=== PATIENT | male | born 1960 | race Caucasian/White ===

== ENCOUNTER 2018-05-13 00:28 | Emergency (ER) | payer MEDICAID ==
--- NOTE | 2018-05-13 00:50 | EDPHY ---
H & P Stated Complaint: right hand closed in car door at 2300 Time Seen by Provider: 05/13/18 00:43 HPI/ROS: Chief Complaint: Right hand injury HPI: 57-year-old male got his hand caught in a car door earlier this evening. Is complaining of pain at the base of his little finger. He has a history of fracture in that location in the past. Injury occurred a little over 2 hr ago. No other injuries. He is not taking any medications. ROS: 10 systems were reviewed and were negative except those elements noted in the HPI. Social History: Positive smoking Family History: non-contributory Physical Exam: General: Awake, alert, no acute distress Right hand: Patient has tenderness with swelling and ecchymosis over his middle 5th metacarpal. No bony deformity. Mild edema. Decreased range of motion of his 4th and 5th digits secondary to pain. No swelling. Sensation intact in the radial, median, and ulnar nerve distribution. Capillary refills less than 2 sec. No wrist tenderness or deformity. 2+ radial ulnar pulses. Skin: No rash - Personal History Current Tetanus/Diphtheria Vaccine: Yes - Medical/Surgical History Hx Asthma: No Hx Chronic Respiratory Disease: Yes Hx Diabetes: No Hx Cardiac Disease: No Hx Renal Disease: No Hx Cirrhosis: No Hx Alcoholism: No Hx HIV/AIDS: No Hx Splenectomy or Spleen Trauma: Yes Other PMH: 1998: fx pelvis/fx liver/spleen/bladder/fx spine. 2012: appy, lacerated artery/ bowel resection. agoraphobia, schizoaffective, bipolar, copd , hep c - Social History Smoking Status: Current every day smoker Constitutional: Initial Vital Signs Temperature (C) 36.5 C 05/13/18 00:34 Heart Rate 100 05/13/18 00:34 Respiratory Rate 18 05/13/18 00:34 Blood Pressure 123/77 H 05/13/18 00:34 O2 Sat (%) 91 L 05/13/18 00:34 O2 Delivery Mode Room Air Allergies/Adverse Reactions: morphine Allergy (Severe, Verified 05/13/18 00:34) Anaphylaxis Home Medications: Medication Instructions Recorded ARIPiprazole [Abilify 5 mg (RX)] 15 mg PO DAILY 09/03/12 Albuterol [Proventil Inhaler (RX)] 2 puffs IH Q4-6PRN PRN 09/03/12 Benztropine Mesylate [Cogentin 2 mg PO DAILY18 09/03/12 (RX)] Diazepam [Valium 5 MG (RX)] 5 mg PO DAILY 09/17/12 Advair 100/50 (*) 05/13/18 Propranolol HCl 05/13/18 Sertraline HCl 05/13/18 Medical Decision Making - Diagnostics Imaging Results: Patient has a displaced 5th metacarpal fracture. Imaging: I viewed and interpreted images myself ED Course/Re-evaluation: The patient placed in an ulnar gutter splint. Been given pain medication. Will discharge with follow up with Hand surgery. I have inspected the patient's splint. He has good immobility with normal perfusion. He is comfortable. Departure - Departure Disposition: Home, Routine, Self-Care Clinical Impression: Hand fracture Condition: Good Instructions: Hydrocodone/Acetaminophen (By mouth), Hand Fracture (ED), Splint Care (ED) Additional Instructions: Follow up with hand surgeon in 2-3 days for further evaluation. Referrals: Gregorio Edwards MD [Medical Doctor] - As per Instructions
[2018-05-13] MEDS ORDERED: HYDROCOD/APAP 5/325 PREPACK#6 BTL TAKEHOME ONE (01:36)
[2018-05-13] MEDS ORDERED: HYDROCODONE/APAP 5/325 TAB PO ONE (01:36)
[2018-05-13 02:13] VITALS: BP 110/86
== END 2018-05-13 02:12 | disposition home or self-care (01) ==
PROC: 2W3EX1Z Immobilization of Right Hand using Splint (ICD-10-PCS; principal; 2018-05-13)
DX: S62.316A Displaced fracture of base of fifth metacarpal bone, right hand, initial encounter for closed fracture (principal); W23.1XXA Caught, crushed, jammed, or pinched between stationary objects, initial encounter; Y92.810 Car as the place of occurrence of the external cause; F17.200 Nicotine dependence, unspecified, uncomplicated

== ENCOUNTER 2018-05-23 20:17 | Emergency (ER) | payer MEDICAID ==
--- NOTE | 2018-05-23 20:27 | EDPHY ---
H & P Stated Complaint: "i feel like the pins are moving"/sx on r hand Time Seen by Provider: 05/23/18 20:27 HPI/ROS: HPI CHIEF COMPLAINT: Right hand pain. HISTORY OF PRESENT ILLNESS: 57-year-old male, history of her right hand fracture. He had surgery on May [address] Connor. He presents emergency room stating his right hand is giving him increasing pain. No fever. He remains in his splint. He is out of his pain medication. States he initially injured his right hand by catching the hand in a car door. Past Medical History: Denies medical history Past Surgical History: Recent right hand surgery May 19. Social History: Denies alcohol or drugs. Family History: Noncontributory ROS REVIEW OF SYSTEMS: 10 Systems were reviewed and negative with the exception of the elements mentioned in the history of present illness. Exam Constitutional triage nursing summary reviewed, vital signs reviewed, awake/ alert. Eyes normal conjunctivae and sclera, EOMI, PERRLA. HENT normal inspection, atraumatic, moist mucus membranes, no epistaxis, neck supple/ no meningismus, no raccoon eyes. Respiratory clear to auscultation bilaterally, normal breath sounds, no respiratory distress, no wheezing. Cardiovascular rate normal, regular rhythm, no murmur, no edema, distal pulses normal. Gastrointestinal soft, non-tender, no rebound, no guarding, normal bowel sounds, no distension, no pulsatile mass. Genitourinary no CVA tenderness. Musculoskeletal right hand: In splint. Otherwise good cap refill, plan for splint takedown evaluation no midline vertebral tenderness, full range of motion, no calf swelling, no tenderness of extremities, no meningismus, good pulses, neurovascularly intact. Skin pink, warm, & dry, no rash, skin atraumatic. Neurologic awake, alert and oriented x 3, AAOx3, moves all 4 extremities equally, motor intact, sensory intact, CN II-XII intact, normal cerebellar, normal vision, normal speech. Psychiatric normal mood/affect. Heme/Lymph/Immune no lymphadenopathy. Differential Diagnosis: Includes but is not limited to in a particular order hand contusion, hand fracture, infection, compartment syndrome, postsurgical discomfort Medical Decision Making: Plan for this patient is complaining of right hand pain status post surgery. Will take down the splint examine his hand make sure that there is no signs of infection or compartment syndrome. Re-evaluation: Patient's splint was taken down. I examined his hand there is no evidence of compartment syndrome. He is neurovascularly intact. The pains that her located on the right lateral aspect of his hand appear clean, dry, intact with no signs of infection. Plan will be for re-splint. I will give him a limited supply of [place] for pain control He understands follow back up with Dr. Connor. Source: Patient - Personal History Current Tetanus Diphtheria and Acellular Pertussis (TDAP): Yes - Medical/Surgical History Hx Asthma: No Hx Chronic Respiratory Disease: Yes Hx Diabetes: No Hx Cardiac Disease: No Hx Renal Disease: No Hx Cirrhosis: No Hx Alcoholism: No Hx HIV/AIDS: No Hx Splenectomy or Spleen Trauma: Yes Other PMH: 1998: fx pelvis/fx liver/spleen/bladder/fx spine, r hand pins sx. 2012: appy, lacerated artery/ bowel resection. agoraphobia, schizoaffective, bipolar, copd, hep c - Social History Smoking Status: Current every day smoker Constitutional: Initial Vital Signs Temperature (C) 36.3 C 05/23/18 20:23 Heart Rate 91 05/23/18 20:23 Respiratory Rate 16 05/23/18 20:23 Blood Pressure 103/70 05/23/18 20:23 O2 Sat (%) 95 05/23/18 20:23 O2 Delivery Mode Room Air Allergies/Adverse Reactions: morphine Allergy (Severe, Verified 05/13/18 00:34) Anaphylaxis Home Medications: Medication Instructions Recorded Hydrocodone/APAP 5/325 [[place] 1 - 2 tab PO Q4H PRN #10 tab 05/23/18 5/325] Ibuprofen 05/23/18 Departure - Departure Disposition: Home, Routine, Self-Care Clinical Impression: Hand pain Condition: Good Instructions: Arthralgia (ED) Referrals: Noel Nelson MD [Primary Care Provider] - As per Instructions Raghavendra Connor MD [Medical Doctor] - As per Instructions Prescriptions: Hydrocodone/APAP 5/325 [[place] 5/325] 1 - 2 tab PO Q4H PRN #10 tab PRN Reason: Pain, Moderate
[2018-05-23 21:57] VITALS: BP 137/63
== END 2018-05-23 21:56 | disposition home or self-care (01) ==
DX: M79.641 Pain in right hand (principal); G89.18 Other acute postprocedural pain

== ENCOUNTER → 2018-06-08 | Outpatient (CLI) | payer MEDICAID | LOC: BMCIMAGING 09:58 | PROVIDERS: ATTEND Physician Assistant | DX: S62.316D Displaced fracture of base of fifth metacarpal bone, right hand, subsequent encounter for fracture with routine healing (principal) ==

== ENCOUNTER → 2018-06-19 | Outpatient (CLI) | payer MEDICAID | LOC: BMCIMAGING 10:05 | PROVIDERS: ATTEND Orthopaedic Surgery Hand Surgery | DX: Z09 Encounter for follow-up examination after completed treatment for conditions other than malignant neoplasm (principal); M19.041 Primary osteoarthritis, right hand ==

== ENCOUNTER → 2018-07-03 | Outpatient (CLI) | payer MEDICAID | LOC: BMCIMAGING 07:44 | PROVIDERS: ATTEND Physician Assistant | DX: S62.320A Displaced fracture of shaft of second metacarpal bone, right hand, initial encounter for closed fracture (principal) ==